=== PATIENT | female | born 1950 | race Caucasian/White ===

== ENCOUNTER 2017-08-22 15:34 | Emergency (ER) | payer OTHER, MEDICARE ==
[2017-08-22 16:01] VITALS: BP 141/69
--- NOTE | 2017-08-22 16:08 | UC ---
Knee Pain HPI - HPI Summary HPI Summary: 67 y/o WF presents with right knee pain for one week. She tells me that the pain began with her walking up stairs, but had no specific injury. Since that time the pain has increased and now she feels as if her knee will "give out" at times. She has not taken anything OTC for her discomfort. No hx of knee issues. - History of Current Complaint Chief Complaint: UCLowerExtremity Stated Complaint: KNEE COMPLAINT Time Seen by Provider: 08/22/17 16:08 Hx Obtained From: Patient Onset/Duration: Gradual Onset Severity Initially: Moderate Severity Currently: Moderate Pain Intensity: 5 Pain Scale Used: 0-10 Numeric Character: Aching, Stiffness Aggravating Factor(s): Movement, Weight Bearing Alleviating Factor(s): Rest - Allergies/Home Medications Allergies/Adverse Reactions: Allergies Allergy/AdvReac Type Severity Reaction Status Date / Time codeine Allergy Pain Verified 08/22/17 15:52 PMH/Surg Hx/FS Hx/Imm Hx Previously Healthy: Yes - Surgical History Surgical History: Yes Surgery Procedure, Year, and Place: d&c - Family History Known Family History: Positive: None - Social History Occupation: Employed Full-time Lives: Alone Alcohol Use: None Substance Use Type: None Smoking Status (MU): Never Smoked Tobacco Review of Systems Constitutional: Negative Skin: Negative Respiratory: Negative Cardiovascular: Negative Neurovascular: Negative Musculoskeletal: Other: - Right knee pain Neurological: Negative Psychological: Negative All Other Systems Reviewed And Are Negative: Yes Physical Exam Triage Information Reviewed: Yes Appearance: Well-Appearing, No Pain Distress, Well-Nourished Vital Signs: Initial Vital Signs Temp 98.3 F 08/22/17 15:54 Pulse 75 08/22/17 15:54 Resp 18 08/22/17 15:54 BP 141/69 08/22/17 15:54 Pulse Ox 100 08/22/17 15:54 Vital Signs Reviewed: Yes Neck: Positive: Supple, Nontender, No Lymphadenopathy Respiratory: Positive: Lungs clear, Normal breath sounds, No respiratory distress Cardiovascular: Positive: RRR, No Murmur, Pulses Normal Musculoskeletal: Positive: Strength Intact - B/L LEs, ROM Intact - B/L LEs, No Edema, Other: - Mild TTP over medial joint space of right knee. Pain in medial aspect with valgus stress. No edema or obvious bony deformities. No patella apprehension. Negative Myrna, A/P drawer, Augusto, and varus stress. Neurological: Positive: Alert, Other: - Sensations intact B/L LEs L3-S1 Psychological: Positive: Age Appropriate Behavior Skin: Negative: rashes Knee Pain Course/Dx - Course Course Of Treatment: XR: IMPRESSION: NEGATIVE EXAMINATION. Suspect right knee patellofemoral syndrome vs meniscus injury. Advised to try ibuprofen and crutches. Refer to ortho. - Differential Dx/Diagnosis Provider Diagnoses: Right knee pain Discharge - Discharge Plan Condition: Stable Disposition: HOME Patient Education Materials: Arthritis (ED) Referrals: Luciana Pierson MD [Medical Doctor] - As Soon As Possible Monserrat Wilson MD [Primary Care Provider] - Additional Instructions: If you develop a fever, shortness of breath, chest pain, new or worsening symptoms - please call your PCP or go to the ED. Your blood pressure was mildly elevated at todays visit. Please see your primary provider within 4 weeks for recheck and re-evaluation. 1) Rest, Ice, and use a knee brace for added comfort 2) May take ibuprofen 600mg every 6-8 hours as needed for pain 3) Please call Orthopedic at the number below to schedule a follow up appointment.
--- NOTE | 2017-08-22 16:35 | RAD ---
INDICATION: Right knee pain COMPARISON: None TECHNIQUE: AP, lateral, tunnel, and sunrise views were obtained. FINDINGS: The bony structures, joint spaces, and soft tissues are normal for age. IMPRESSION: NEGATIVE EXAMINATION
== END 2017-08-22 17:20 | disposition home or self-care (01) ==
LOC: UCEAST 15:34
DX: M25.561 Pain in right knee (principal); Z88.5 Allergy status to narcotic agent
CPT/HCPCS: 99211; G0463